=== PATIENT | male | born 1975 | race Caucasian/White ===

== ENCOUNTER 2019-03-06 10:31 | Emergency (ER) | payer BC, OTHER ==
[2019-03-06 10:53] VITALS: BP 139/92
--- NOTE | 2019-03-06 11:19 | UC ---
General HPI - HPI Summary HPI Summary: Pleasant 44 yo gentleman c/o approx 1 week sore throat, sinus congestion. Sinus issues have improved, but sore throat has not gotten better. Has "popped " ears several times, jaw muscles sore. No fever / chills. No sob / cp / palpitations. Takes prescription antihistamine daily as needed (and lately has needed) for exogenous allergies. No rash. No vision / eye c/o's. Concerned that he might have a throat infection. - History of Current Complaint Chief Complaint: UCRespiratory Stated Complaint: SORE THROAT COUGH Time Seen by Provider: 03/06/19 11:10 Hx Obtained From: Patient Pain Intensity: 2 - Allergy/Home Medications Allergies/Adverse Reactions: Allergies Allergy/AdvReac Type Severity Reaction Status Date / Time Penicillins Allergy Hives Verified 03/06/19 10:55 Home Medications: Home Medications Ibuprofen [Advil] 1 tab PO DAILY 03/06/19 [History Confirmed 03/06/19] Menthol [[place]] 1 tab PO ONCE PRN 03/06/19 [History Confirmed 03/06/19] Prescribed Allergy Medication 1 tab PO DAILY 03/06/19 [History Confirmed ] PMH/Surg Hx/FS Hx/Imm Hx Previously Healthy: Yes - Surgical History Surgical History: Yes Surgery Procedure, Year, and Place: abd hernia repair as a baby. [place] Teeth extracted - Family History Known Family History: Positive: Other - [place], skin cancer - Social History Alcohol Use: Daily Alcohol Amount: beer - 1 with dinner Substance Use Type: None Smoking Status (MU): Former Smoker Type: Cigarettes Have You Smoked in the Last Year: No When Did the Patient Quit Smoking/Using Tobacco: quit 5 years ago - Immunization History Most Recent Influenza Vaccination: never Most Recent Tetanus Shot: ukknown Review of Systems All Other Systems Reviewed And Are Negative: Yes Constitutional: Positive: Negative, Other - see hpi Skin: Positive: Other - see hpi Eyes: Positive: Other - see hpi ENT: Positive: Other - see hpi Respiratory: Positive: Other - see hpi Cardiovascular: Positive: Other - see hpi Gastrointestinal: Positive: Other - see hpi Genitourinary: Positive: Negative Motor: Positive: Negative Neurovascular: Positive: Negative Musculoskeletal: Positive: Negative Neurological: Positive: Negative Psychological: Positive: Negative Is Patient Immunocompromised?: No Physical Exam Triage Information Reviewed: Yes Appearance: Well-Appearing, Well-Nourished Vital Signs: Initial Vital Signs Temp 97.9 F 03/06/19 10:47 Pulse 72 03/06/19 10:47 Resp 18 03/06/19 10:47 BP 139/92 03/06/19 10:47 Pulse Ox 100 03/06/19 10:47 Vital Signs Reviewed: Yes Eye Exam: Other - sclerae a little injected o/w ok ENT: Positive: Pharyngeal erythema - mild post pharyngeal redness, uvula mild edematous, no sores / exudates appreciated. Uvula midline., TM dull - Bilat TM dull, rtx'd Neck exam: Normal Neck: Positive: Supple, Nontender, No Lymphadenopathy Respiratory Exam: Normal Respiratory: Positive: Chest non-tender, Lungs clear, Normal breath sounds, No respiratory distress, No accessory muscle use Cardiovascular Exam: Normal Cardiovascular: Positive: RRR, No Murmur, Pulses Normal, Brisk Capillary Refill Abdominal Exam: Normal Abdomen Description: Positive: Nontender Musculoskeletal Exam: Normal Neurological Exam: Normal Psychological Exam: Normal Course/Dx - Course Course Of Treatment: Reviewed coa / tx plan. Strep negative. Cx sent. Questions as posed answered to the best of my ability. - Diagnoses Provider Diagnosis: Pharyngitis Discharge - Sign-Out/Discharge Documenting (check all that apply): Patient Departure All imaging exams completed and their final reports reviewed: No Studies - Discharge Plan Condition: Stable Disposition: HOME Patient Education Materials: Pharyngitis (ED) Referrals: Margie De La Rosa MD [Primary Care Provider] - Additional Instructions: Hydrate. Please seek medical attention for any worse or new symptoms. Throat culture has been sent. Rapid strep test today negative. - Billing Disposition and Condition Condition: STABLE Disposition: Home
== END 2019-03-06 11:54 | disposition home or self-care (01) ==
LOC: UCEAST 10:31
DX: J02.9 Acute pharyngitis, unspecified (principal); Z87.891 Personal history of nicotine dependence; Z88.0 Allergy status to penicillin
CPT/HCPCS: 87070; 87651; 99211; G0463